=== PATIENT | male | born 1960 | race Caucasian/White ===

== ENCOUNTER 2024-12-27 15:25 | Inpatient (IN) | payer MEDICARE, OTHER ==
[~2024-12-27] VITALS: Ht 175.3 cm; Wt 65.8 kg
[2024-12-27 16:45] LABS: PLATELET COUNT (AUTO) 222 K/uL (150-450); RED BLOOD CELL COUNT(AUTO) 3.93 MIL/uL (4.5-6.0); RED CELL DISTRIBUTION WIDTH 15.8 % (11.5-15.0); WHITE BLOOD COUNT (AUTO) 4.1 K/uL (4.3-11.0)
[2024-12-27] MEDS ORDERED: APIX5TAB PO (17:15)
[2024-12-27] MEDS ORDERED: ARIP400S3 IM (17:15)
[2024-12-27] MEDS ORDERED: LAMO25TA10 PO (17:15)
[2024-12-27 17:18] LABS: CALCIUM, SERUM 8.7 mg/dL (8.5-10.1); CREATININE 1.2 mg/dL (0.6-1.3); SODIUM SERUM 140 mmol/L (136-145); UREA NITROGEN, BLOOD 9 mg/dL (7-18)
[2024-12-27 17:23] LABS: ASPARTATE AMINOTRANSFERASE 38 U/L (15-37); TOTAL PROTEIN, SERUM 6.0 g/dL (6.4-8.2)
[2024-12-27 17:25] LABS: APPEARANCE,URINE CLEAR (CLEAR); BLOOD, URINE Trace-intact Ery/uL (NEGATIVE); LEUKOCYTE ESTERASE ,URINE Negative (NEGATIVE); NITRITE, URINE NEGATIVE (NEGATIVE); UGLUCOSE Negative (NEGATIVE)
[2024-12-27 17:26] LABS: ADD URINE CULTURE NO; SQUAMOUS EPITHELIAL CELL,UR Rare /HPF (None Seen)
[2024-12-27 17:31] LABS: AMPHETAMINE, URINE NEGATIVE (NEGATIVE); BARBITURATE, URINE NEGATIVE (NEGATIVE); BENZODIAZEPINE, URINE POSITIVE (NEGATIVE); CANNABINOID, URINE NEGATIVE (NEGATIVE); COCCAINE, URINE NEGATIVE (NEGATIVE); OPIATE, URINE NEGATIVE (NEGATIVE)
[2024-12-27 20:30] VITALS: BP 120/81; TEMP 97.9; O2SAT 100
[2024-12-27] MEDS ORDERED: LORAZEPAM 0.5 MG TABLET PO PRN (21:00)
[2024-12-27] MEDS ORDERED: MAG HYDROX/AL HYDROX/SIMETH 30 ML UDC PO PRN (21:00)
[2024-12-27] MEDS ORDERED: MAGNESIUM HYDROXIDE 30 ML UDC PO PRN (21:00)
[2024-12-27] MEDS: LORAZEPAM 0.5 MG TABLET PO PRN (21:37)
[2024-12-27] MEDS: BLOOD SUGAR DIAGNOSTIC 1 EACH STRIP IN ONE (21:37)
[2024-12-27] MEDS: TEMAZEPAM 7.5 MG CAPSULE PO PRN (21:42)
[2024-12-28 07:44] LABS: LDL 82 mg/dL (0-99)
[2024-12-28 07:46] LABS: ASPARTATE AMINOTRANSFERASE 37.0 U/L (15-37); CALCIUM, SERUM 8.9 mg/dL (8.5-10.1); CREATININE 1.1 mg/dL (0.6-1.3); SODIUM SERUM 142.0 mmol/L (136-145); TOTAL PROTEIN, SERUM 5.9 g/dL (6.4-8.2); UREA NITROGEN, BLOOD 9.0 mg/dL (7-18)
[2024-12-28] MEDS: PANTOPRAZOLE 40 MG TABLET.DR PO SCH (07:53)
[2024-12-28 08:00] VITALS: BP 120/82; TEMP 98.6; O2SAT 98
[2024-12-28 08:21] LABS: IRON, SERUM 38.0 ug/dl (50-175)
[2024-12-28] MEDS: APIXABAN 5 MG TABLET PO SCH (08:21)
[2024-12-28] MEDS: LORAZEPAM 1 MG TABLET PO PRN (14:58)
[2024-12-28] MEDS: OLANZAPINE 10 MG VIAL IM ONE (15:06)
[2024-12-28] MEDS: LORAZEPAM INJ 2 MG/ML VIAL IM ONE (15:06)
[2024-12-28 16:00] VITALS: BP 123/74; TEMP 97.8; O2SAT 98
[2024-12-28 19:49] VITALS: BP 108/85; TEMP 97.7; O2SAT 100
[2024-12-28] MEDS: DIVALPROEX SODIUM 500 MG TABLET.DR PO SCH (20:11)
[2024-12-28] MEDS: TEMAZEPAM 7.5 MG CAPSULE PO PRN (20:12)
[2024-12-28] MEDS: ACETAMINOPHEN 325 MG TABLET PO PRN (21:16)
[2024-12-29 08:00] VITALS: BP 118/87; TEMP 98.1; O2SAT 99
[2024-12-29] MEDS: OLANZAPINE ZYDIS 5 MG TAB.RAPDIS PO ONE (10:59)
[2024-12-29] MEDS: DIVALPROEX SODIUM 500 MG TABLET.DR PO SCH (13:15)
[2024-12-29] MEDS: BENZTROPINE MESYLATE (1 MG) 1 MG TABLET PO SCH (13:15)
[2024-12-29 16:09] VITALS: BP 103/78; TEMP 98.3; O2SAT 96
[2024-12-29] MEDS: LORAZEPAM 0.5 MG TABLET PO SCH (17:22)
[2024-12-29 21:48] VITALS: BP 125/81; TEMP 97.7; O2SAT 100
[2024-12-30 08:00] VITALS: BP 132/85; TEMP 98.6; O2SAT 97
[2024-12-30 16:00] VITALS: BP 117/83; TEMP 98.2; O2SAT 97
[2024-12-30 20:00] VITALS: BP 119/81; TEMP 98.4; O2SAT 98
[2024-12-30] MEDS: TEMAZEPAM 15 MG CAPSULE PO PRN (21:45)
[2024-12-31 08:00] VITALS: BP 134/79; TEMP 97.8; O2SAT 100
[2024-12-31 09:44] VITALS: TEMP 98.2
== END 2024-12-31 12:46 | disposition home or self-care (01) | DRG 885 ==
LOC: ER 15:39 → GPS 17:39
PROVIDERS: ADMIT Psychiatry & Neurology Psychosomatic Medicine; ATTEND Registered Nurse Psychiatric/Mental Health
DX: F31.2 Bipolar disorder, current episode manic severe with psychotic features (principal); E44.1 Mild protein-calorie malnutrition; K21.9 Gastro-esophageal reflux disease without esophagitis; D64.9 Anemia, unspecified; Z79.01 Long term (current) use of anticoagulants; Z86.711 Personal history of pulmonary embolism; Z86.718 Personal history of other venous thrombosis and embolism; Z87.820 Personal history of traumatic brain injury; Z73.6 Limitation of activities due to disability; R73.9 Hyperglycemia, unspecified; Z20.822 Contact with and (suspected) exposure to COVID-19; Z68.21 Body mass index [BMI] 21.0-21.9, adult; G25.0 Essential tremor
CPT/HCPCS: 36415; 70450-TC; 80048-TC; 80053-TC; 80061-TC; 80076-TC; 81001; 82962-TC; 83540-TC; 84443-TC; 85025-TC; 87081-TC; 93307-TC; J2060; J3490